=== PATIENT | female | born 1980 | race Caucasian/White ===

== ENCOUNTER 2022-11-28 08:00 | Emergency (ER) | payer SELFPAY ==
[2022-11-28 08:08] VITALS: BP 147/79; PULSE 91; RESP 18; TEMP 37.2; O2SAT 99
--- NOTE | 2022-11-28 09:26 | ED.WOUNDLAC ---
HPI - Wound/Laceration General Chief Complaint: Wound/Laceration Stated Complaint: wound issues Time Seen by Provider: 11/28/22 08:07 History of Present Illness HPI narrative: Patient is a 42-year-old female who presents to the ER with concerns for infection and nonhealing wound to the left knee. At the end of October patient tripped and fell scraping her left knee. Over the next few days she began to develop drainage and weeping to the area. She was seen at an urgent care and prescribed cephalexin and steroids. Patient reports area started to slightly improved and the weeping drainage began to dry out. However after the antibiotics were finished she was still having bumps around the area that would weep. She was seen by her PCP who prescribed Valtrex due to concern for herpes zoster. Patient has taken this medication only has 2 doses left. She feels as if the wound is not improving. She has no fevers or chills or sweats. No lymphangitic streaking. She has been applying some topical Neosporin as well as some Vaseline without improvement. This is over the last 2 days. No itching or burning. No new swelling. She maintains range of motion at her knee. Related Data Home Medications Medication Instructions Recorded Confirmed ferrous sulfate 325 mg (65 mg 325 mg PO DAILY 06/07/19 06/21/19 iron) tablet multivitamin 1 tablet PO DAILY 06/07/19 06/21/19 norethindrone 1 mg-ethinyl 1 tablet PO DAILY 06/07/19 06/21/19 estradiol 35 mcg tablet (Nortrel) Allergies Allergy/AdvReac Type Severity Reaction Status Date / Time oxycodone AdvReac Severe severe Verified 06/21/19 06:13 nausea/vomiting Review of Systems Review of Systems: All systems reviewed & are unremarkable except as noted in HPI and below Constitutional: Constitutional: Denies chills and Denies fever(s) Musculoskeletal: Musculoskeletal: Denies arthralgias, Denies joint swelling and Denies muscle cramps Integumentary/Breasts: Skin/Breast: Denies pruritus, Reports erythema, Reports rash and Reports skin ulcer PMFSH Past Medical History Medical History (Updated 11/28/22 @ 09:27 by Greg Arriaza MD) Anemia Surgical History Surgical History (Updated 11/28/22 @ 18:46 by Greg Arriaza MD) No pertinent past surgical history Exam Narrative: GENERAL: Well-appearing, well-nourished, and in no acute distress. HEAD: Normocephalic, atraumatic. CHEST: Clear to auscultation. No respiratory distress. HEART: Regular rate and rhythm. Normal peripheral pulses. EXTREMITIES: Normal range of motion. No edema. SKIN: At the left knee there is a central area of reddened and weeping skin that appears raw. Surrounding this there are firm papules of the hair follicles without purulent discharge, some have clear discharge. No induration of the area. NEURO: Alert and oriented x3. PSYCH: Normal mood and affect. Course Course Emergency Course: Rash seems to be firm and nodular at hair follicles but then there is a central area that is more erythematous and flat. Could be a combination of cellulitis with folliculitis. Will be started on topical and oral medications. 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 She is verbalized understanding treatment plan. From looking at the photos on patient's phone it seems like patient was having modest improvement until discontinuing antibiotics and starting antiviral therapy. Vital Signs Vital signs: Vital Signs Temperature 98.9 F 11/28/22 08:08 Pulse Rate 91 11/28/22 08:08 Respiratory Rate 18 11/28/22 08:08 Blood Pressure 147/79 H 11/28/22 08:08 Pulse Oximetry 99 11/28/22 08:08 Oxygen Delivery Room Air 11/28/22 08:08 Temperature 98.9 F 11/28/22 08:08 Pulse Rate 70 11/28/22 09:55 Respiratory Rate 18 11/28/22 09:55 Blood Pressure 96/61 L 11/28/22 09:55 Pulse Oximetry 100 11/28/22 09:55
[2022-11-28 09:55] VITALS: BP 96/61; PULSE 70; RESP 18; O2SAT 100
== END 2022-11-28 09:56 | disposition home or self-care (01) ==
PROVIDERS: Emergency Provider Emergency Medicine; PCP Internal Medicine
DX: L73.9 Follicular disorder, unspecified (principal); D64.9 Anemia, unspecified
CPT/HCPCS: 99283